=== PATIENT | female | born 1980 | race Caucasian/White ===

== ENCOUNTER 2019-05-31 15:05 | Observation (INO) | payer MEDICAID, OTHER ==
[~2019-05-31] VITALS: Ht 170.2 cm; Wt 76.8 kg
[2019-05-31 15:32] VITALS: BP 118/67
[2019-05-31] MEDS ORDERED: FOLI1 PO (15:37)
[2019-05-31] MEDS ORDERED: PREN-134 PO (15:37)
[2019-05-31] MEDS ORDERED: LEVO75 PO (15:37)
== END 2019-05-31 16:05 | disposition home or self-care (01) ==
LOC: 4S 15:05
PROVIDERS: ADMIT Obstetrics & Gynecology; ATTEND Obstetrics & Gynecology
DX: O09.93 Supervision of high risk pregnancy, unspecified, third trimester (principal); O99.283 Endocrine, nutritional and metabolic diseases complicating pregnancy, third trimester; E03.9 Hypothyroidism, unspecified; Z3A.34 34 weeks gestation of pregnancy
CPT/HCPCS: 81002; G0378

== ENCOUNTER 2019-06-04 13:55 | Observation (INO) | payer OTHER ==
[~2019-06-04 13:55] MED LIST: FOLI1 PO; LEVO75 PO; PREN-134 PO
[2019-06-04 14:26] VITALS: BP 105/58
[2019-06-04 15:01] LABS: GLUCOMETER DEV NAME(LOC) 4S.; GLUCOSE,POINT OF CARE 111 MG/DL (70-110)
== END 2019-06-04 15:00 | disposition home or self-care (01) ==
LOC: 4S 13:55
PROVIDERS: ADMIT Obstetrics & Gynecology; ATTEND Obstetrics & Gynecology
DX: O24.419 Gestational diabetes mellitus in pregnancy, unspecified control (principal); O99.283 Endocrine, nutritional and metabolic diseases complicating pregnancy, third trimester; E03.9 Hypothyroidism, unspecified; O09.523 Supervision of elderly multigravida, third trimester; Z3A.35 35 weeks gestation of pregnancy
CPT/HCPCS: 81002; 82962; G0378

== ENCOUNTER 2019-06-07 17:45 | Observation (INO) | payer OTHER ==
[~2019-06-07] VITALS: Ht 170.2 cm; Wt 77.1 kg
[2019-06-07 18:54] VITALS: BP 100/60
== END 2019-06-07 18:50 | disposition home or self-care (01) ==
LOC: 4S 17:45
PROVIDERS: ADMIT Obstetrics & Gynecology; ATTEND Obstetrics & Gynecology
DX: O09.513 Supervision of elderly primigravida, third trimester (principal); O24.419 Gestational diabetes mellitus in pregnancy, unspecified control; Z90.721 Acquired absence of ovaries, unilateral; Z3A.35 35 weeks gestation of pregnancy
CPT/HCPCS: 81002; G0378

== ENCOUNTER 2019-06-14 08:54 | Observation (INO) | payer OTHER ==
[~2019-06-14] VITALS: Ht 170.2 cm; Wt 77.1 kg
[2019-06-14] MEDS ORDERED: CALCIUM PO (10:24)
[2019-06-14] MEDS ORDERED: FOLIC AC PO (10:25)
[2019-06-14] MEDS ORDERED: PREN-217 PO (10:25)
[2019-06-14 10:26] VITALS: BP 108/59
== END 2019-06-14 10:15 | disposition home or self-care (01) ==
LOC: 4S 08:54
PROVIDERS: ADMIT Obstetrics & Gynecology; ATTEND Obstetrics & Gynecology
DX: O36.8330 Maternal care for abnormalities of the fetal heart rate or rhythm, third trimester, not applicable or unspecified (principal); O26.893 Other specified pregnancy related conditions, third trimester; E03.9 Hypothyroidism, unspecified; Z3A.36 36 weeks gestation of pregnancy
CPT/HCPCS: 81002; G0378

== ENCOUNTER 2019-06-21 16:06 | Observation (INO) | payer OTHER ==
[~2019-06-21] VITALS: Ht 170.2 cm; Wt 80.7 kg
[~2019-06-21 16:06] MED LIST changes: +CALCIUM PO; +FOLIC AC PO; +PREN-217 PO
[2019-06-21] MEDS ORDERED: CALCIUM PO (16:59)
[2019-06-21] MEDS ORDERED: PREN-217 PO (16:59)
[2019-06-21] MEDS ORDERED: FOLI0.4T14 PO (17:02)
[2019-06-21] MEDS ORDERED: IRON PO (17:02)
[2019-06-21 17:03] VITALS: BP 109/62
== END 2019-06-21 17:35 | disposition home or self-care (01) ==
LOC: 4S 16:06
PROVIDERS: ADMIT Obstetrics & Gynecology; ATTEND Obstetrics & Gynecology
DX: O26.893 Other specified pregnancy related conditions, third trimester (principal); R10.30 Lower abdominal pain, unspecified; O24.419 Gestational diabetes mellitus in pregnancy, unspecified control; O99.283 Endocrine, nutritional and metabolic diseases complicating pregnancy, third trimester; O12.03 Gestational edema, third trimester; Z3A.37 37 weeks gestation of pregnancy

== ENCOUNTER 2019-06-25 09:00 | Observation (INO) | payer OTHER ==
[~2019-06-25 09:00] MED LIST changes: +FOLI0.4T14 PO; +IRON PO
[2019-06-25] MEDS ORDERED: CALCIU PO (09:56)
[2019-06-25] MEDS ORDERED: LEVO75 PO (09:56)
[2019-06-25] MEDS ORDERED: FERR-89 PO (09:56)
[2019-06-25] MEDS ORDERED: FOLI0.4T14 PO (09:56)
[2019-06-25] MEDS ORDERED: PREN-217 PO (09:56)
[2019-06-25 09:58] VITALS: BP 108/66
== END 2019-06-25 11:00 | disposition home or self-care (01) ==
LOC: 4S 09:00
PROVIDERS: ADMIT Obstetrics & Gynecology; ATTEND Obstetrics & Gynecology
DX: O36.8130 Decreased fetal movements, third trimester, not applicable or unspecified (principal); O13.3 Gestational [pregnancy-induced] hypertension without significant proteinuria, third trimester; O99.283 Endocrine, nutritional and metabolic diseases complicating pregnancy, third trimester; E05.90 Thyrotoxicosis, unspecified without thyrotoxic crisis or storm; Z3A.38 38 weeks gestation of pregnancy
CPT/HCPCS: 81002; G0378

== ENCOUNTER 2019-07-02 09:05 | Observation (INO) | payer OTHER ==
[~2019-07-02] VITALS: Ht 170.2 cm; Wt 78.6 kg
[~2019-07-02 09:05] MED LIST changes: +CALCIU PO; +FERR-89 PO
[2019-07-02] MEDS ORDERED: calcium PO (09:42)
[2019-07-02] MEDS ORDERED: LEVO100 PO (09:42)
[2019-07-02] MEDS ORDERED: FOLI0.4T14 PO (09:42)
[2019-07-02] MEDS ORDERED: FERR-89 PO (09:42)
[2019-07-02] MEDS ORDERED: PREN-217 PO (09:42)
[2019-07-02 09:44] VITALS: BP 117/57
== END 2019-07-02 09:40 | disposition home or self-care (01) ==
LOC: 4S 09:05
PROVIDERS: ADMIT Obstetrics & Gynecology; ATTEND Obstetrics & Gynecology
DX: O36.8330 Maternal care for abnormalities of the fetal heart rate or rhythm, third trimester, not applicable or unspecified (principal); O24.419 Gestational diabetes mellitus in pregnancy, unspecified control; O99.283 Endocrine, nutritional and metabolic diseases complicating pregnancy, third trimester; Z3A.39 39 weeks gestation of pregnancy; Z98.890 Other specified postprocedural states

== ENCOUNTER 2019-07-05 18:20 | Observation (INO) | payer OTHER ==
[~2019-07-05] VITALS: Ht 160 cm; Wt 78.9 kg
[~2019-07-05 18:20] MED LIST changes: +LEVO100 PO; +calcium PO
[2019-07-05] MEDS ORDERED: FERR-89 PO (18:24)
[2019-07-05] MEDS ORDERED: RINGERS SOLUTION,LACTATED 1,000 ML IV PRN (18:24)
[2019-07-05] MEDS ORDERED: calcium PO (18:24)
[2019-07-05] MEDS ORDERED: Levothyroxine PO (18:24)
[2019-07-05] MEDS ORDERED: PREN-217 PO ×2 (18:24→18:59)
[2019-07-05] MEDS ORDERED: METOCLOPRAMIDE HCL 5 MG/ML 2 ML VIAL IVP PRN (18:30)
[2019-07-05] MEDS ORDERED: CITRIC ACID/SODIUM CITRATE 30 ML SOLUTION UDCUP PO PRN (18:30)
[2019-07-05 18:53] VITALS: BP 122/69
[2019-07-05] MEDS ORDERED: Calcium PO (18:59)
[2019-07-05] MEDS ORDERED: FOLI0.4T14 PO (18:59)
[2019-07-05] MEDS ORDERED: LEVO100 PO (18:59)
[2019-07-05] MEDS ORDERED: OXYGEN THERAPY IH SCH (20:00)
[2019-07-05] MEDS: RINGERS SOLUTION,LACTATED 1,000 ML IV SCH (20:13)
[2019-07-05] MEDS ORDERED: DINOPROSTONE 10 MG VAGINAL SUPPOSITORY VG ONE (20:15)
[2019-07-05] MEDS ORDERED: OXYTOCIN 30 UNITS/LACT RINGERS 500 ML IV ONE (21:12)
[2019-07-05] MEDS ORDERED: METHYLERGONOVINE MALEATE 0.2 MG/ML VIAL IM PRN (21:15)
[2019-07-05] MEDS ORDERED: AMPICILLIN SODIUM 2 GM/NS 100 ML IV ONE (21:30)
[2019-07-05 21:44] LABS: BASOPHILS % (AUTO) 0.4 % (0.0-2.0); EOSINOPHILS % (AUTO) 0.4 % (1.0-6.0); HEMATOCRIT 30.2 % (36-46); HEMOGLOBIN 10.2 g/dL (12.0-16.0); LYMPHOCYTES # (AUTO) 2.2 K/uL (1.0-4.8); LYMPHOCYTES % (AUTO) 25.2 % (22.0-44.0); MEAN CORPUSCULAR HEMOGLOBIN 31.1 pg (26.0-34.0); MEAN CORPUSCULAR HGB CONC 33.7 G/dL (31.0-37.0); MEAN CORPUSCULAR VOLUME 92 fL (80-100); MONOCYTES # (AUTO) 0.7 K/uL (0.1-1.0); MONOCYTES % (AUTO) 7.4 % (2.0-9.0); NEUTROPHILS # (AUTO) 5.9 K/uL (1.8-7.7); NEUTROPHILS % (AUTO) 66.6 % (40.0-70.0); PLATELET COUNT (AUTO)-OB 159 K/uL (150-450); RED BLOOD CELL COUNT(AUTO) 3.27 MIL/uL (4.00-5.20); RED CELL DISTRIBUTION WIDTH 14.5 % (11.5-14.5)
[2019-07-06] MEDS: AMPICILLIN SODIUM 1 GM/NS 50 ML IV SCH ×4 (01:27→14:23)
[2019-07-06] MEDS ORDERED: LEVOTHYROXINE SODIUM 75 MCG TABLET PO ONE (06:00)
[2019-07-06 07:17] LABS: GLUCOMETER DEV NAME(LOC) 4S.; GLUCOSE,POINT OF CARE 92 MG/DL (70-110)
[2019-07-06] MEDS ORDERED: -PHARMACY NOTE- MISC ONE (08:15)
[2019-07-06] MEDS ORDERED: MISOPROSTOL 25 MCG TABLET VG SCH (08:30)
[2019-07-06] MEDS: RINGERS SOLUTION,LACTATED 1,000 ML IV SCH ×2 (08:59→17:40)
[2019-07-06] MEDS ORDERED: MISOPROSTOL 50 MCG TABLET VG SCH (12:30)
[2019-07-06] MEDS: MISOPROSTOL 50 MCG TABLET PO SCH ×2 (13:31→17:39)
== END 2019-07-06 19:00 | disposition home or self-care (01) ==
LOC: 4S 18:20 → INTOOBSV 18:20 → OBSVTOIN 18:20
PROVIDERS: ADMIT Obstetrics & Gynecology; ATTEND Obstetrics & Gynecology
DX: O62.9 Abnormality of forces of labor, unspecified (principal); O09.523 Supervision of elderly multigravida, third trimester; O24.419 Gestational diabetes mellitus in pregnancy, unspecified control; Z79.899 Other long term (current) drug therapy; O99.283 Endocrine, nutritional and metabolic diseases complicating pregnancy, third trimester; E03.9 Hypothyroidism, unspecified; O48.0 Post-term pregnancy; Z3A.40 40 weeks gestation of pregnancy
CPT/HCPCS: 36415; 82962; 85025; 86850; 86900; 86901; 96365; 96366; G0378 ×2; J0290 ×2; J7120 ×2

== ENCOUNTER 2019-07-11 16:45 | Inpatient (IN) | payer OTHER ==
[~2019-07-11] VITALS: Ht 170.2 cm; Wt 80.3 kg
[~2019-07-11 16:45] MED LIST changes: +Calcium PO; +Levothyroxine PO
[2019-07-11] MEDS ORDERED: RINGERS SOLUTION,LACTATED 1,000 ML IV PRN (16:53)
[2019-07-11] MEDS ORDERED: METOCLOPRAMIDE HCL 5 MG/ML 2 ML VIAL IVP PRN (17:00)
[2019-07-11] MEDS ORDERED: MISOPROSTOL 25 MCG TABLET VG ONE (17:00)
[2019-07-11] MEDS ORDERED: CITRIC ACID/SODIUM CITRATE 30 ML SOLUTION UDCUP PO PRN (17:00)
[2019-07-11 17:16] VITALS: BP 117/68
[2019-07-11 17:22] LABS: BASOPHILS % (AUTO) 0.6 % (0.0-2.0); EOSINOPHILS % (AUTO) 0.4 % (1.0-6.0); HEMATOCRIT 32.3 % (36-46); HEMOGLOBIN 10.7 g/dL (12.0-16.0); LYMPHOCYTES # (AUTO) 2.3 K/uL (1.0-4.8); LYMPHOCYTES % (AUTO) 26.6 % (22.0-44.0); MEAN CORPUSCULAR HEMOGLOBIN 30.6 pg (26.0-34.0); MEAN CORPUSCULAR HGB CONC 33.1 G/dL (31.0-37.0); MEAN CORPUSCULAR VOLUME 93 fL (80-100); MONOCYTES # (AUTO) 0.4 K/uL (0.1-1.0); MONOCYTES % (AUTO) 5.2 % (2.0-9.0); NEUTROPHILS # (AUTO) 5.9 K/uL (1.8-7.7); NEUTROPHILS % (AUTO) 67.2 % (40.0-70.0); PLATELET COUNT (AUTO) 163 K/uL (150-450); RED BLOOD CELL COUNT(AUTO) 3.49 MIL/uL (4.00-5.20)
[2019-07-11] MEDS ORDERED: PREN-217 PO (17:33)
[2019-07-11] MEDS ORDERED: FERR-89 PO (17:33)
[2019-07-11] MEDS ORDERED: LEVO100 PO (17:33)
[2019-07-11] MEDS ORDERED: Calcium PO (17:33)
[2019-07-11] MEDS: RINGERS SOLUTION,LACTATED 1,000 ML IV SCH ×2 (17:55→22:06)
[2019-07-11] MEDS ORDERED: OXYGEN THERAPY IH SCH (20:00)
[2019-07-11 20:16] LABS: GLUCOMETER DEV NAME(LOC) 4S.; GLUCOSE,POINT OF CARE 79 MG/DL (70-110)
[2019-07-11] MEDS ORDERED: AMPICILLIN SODIUM 2 GM/NS 100 ML IV ONE (23:00)
[2019-07-11] MEDS: MISOPROSTOL 50 MCG TABLET VG SCH (23:12)
[2019-07-12] MEDS: MISOPROSTOL 50 MCG TABLET VG SCH ×2 (03:18→08:33)
[2019-07-12] MEDS: RINGERS SOLUTION,LACTATED 1,000 ML IV SCH ×3 (06:50→23:09)
[2019-07-12 07:59] LABS: GLUCOMETER DEV NAME(LOC) 4S.; GLUCOSE,POINT OF CARE 74 MG/DL (70-110)
[2019-07-12] MEDS ORDERED: LEVOTHYROXINE SODIUM 100 MCG TABLET PO ONE (08:30)
[2019-07-12] MEDS ORDERED: DINOPROSTONE 10 MG VAGINAL SUPPOSITORY VG ONE (11:45)
[2019-07-12] MEDS: FentaNYL CITRATE-PF 100 MCG/2 ML VIAL IVP PRN ×6 (12:03→21:48)
[2019-07-12] MEDS ORDERED: INFLUENZA VIRUS VACCINE QVS 2019-20 (3YR+)/PF 60 MCG/0.5 ML SYRINGE IM ONE (14:30)
[2019-07-13] MEDS ORDERED: OXYTOCIN 30 UNITS/LACT RINGERS 500 ML IV PRN (01:45)
[2019-07-13] MEDS: FentaNYL CITRATE-PF 100 MCG/2 ML VIAL IVP PRN (02:26)
[2019-07-13] MEDS ORDERED: ROPIVACAINE HCL/PF 0.2% 100 ML ED ONE (03:51)
[2019-07-13] MEDS ORDERED: NALBUPHINE HCL 10 MG/ML VIAL IVP PRN (04:15)
[2019-07-13] MEDS ORDERED: DiphenhydrAMINE HCL 50 MG/ML VIAL IVP PRN (04:15)
[2019-07-13] MEDS ORDERED: ONDANSETRON HCL 4 MG/2 ML VIAL IVP PRN (04:15)
[2019-07-13] MEDS ORDERED: AMPICILLIN SODIUM 2 GM/NS 100 ML IV ONE ×2 (05:01→05:15)
[2019-07-13] MEDS: RINGERS SOLUTION,LACTATED 1,000 ML IV SCH ×3 (05:11→19:14)
[2019-07-13] MEDS ORDERED: LIDOCAINE 2%/EPI 1:200,000/PF 20 ML VIAL ONE (07:31)
[2019-07-13] MEDS: LEVOTHYROXINE SODIUM 100 MCG TABLET PO SCH (07:47)
[2019-07-13 08:05] LABS: GLUCOMETER DEV NAME(LOC) 4S.; GLUCOSE,POINT OF CARE 62 MG/DL (70-110)
[2019-07-13] MEDS: AMPICILLIN SODIUM 1 GM/NS 50 ML IV SCH ×2 (09:15→13:28)
[2019-07-13] MEDS: ROPIVACAINE HCL/PF 0.2% 100 ML ED PRN ×2 (10:07→15:17)
[2019-07-13 11:48] LABS: GLUCOMETER DEV NAME(LOC) 4S.; GLUCOSE,POINT OF CARE 73 MG/DL (70-110)
[2019-07-13] MEDS ORDERED: OXYTOCIN 30 UNITS/LACT RINGERS 500 ML IV ONE (13:05)
[2019-07-13] MEDS ORDERED: ACETAMINOPHEN 1000 MG/ISO-OSM 100 ML IV ONE ×2 (13:45→14:30)
[2019-07-13] MEDS ORDERED: GENTAMICIN 120 MG/NACL ISO-OSM 100 ML IV ONE (13:45)
[2019-07-13] MEDS ORDERED: AMPICILLIN SODIUM 1 GM/NS 50 ML IV ONE (13:45)
[2019-07-13] MEDS ORDERED: AMPICILLIN SODIUM 2 GM/NS 100 ML IV SCH (19:30)
[2019-07-13] MEDS ORDERED: AMPICILLIN SODIUM 1 GM/NS 50 ML IV SCH (19:30)
[2019-07-13] MEDS ORDERED: MISOPROSTOL 100 MCG TABLET ONE (21:07)
[2019-07-13] MEDS ORDERED: MISOPROSTOL 100 MCG TABLET PO ONE (21:15)
[2019-07-13] MEDS ORDERED: RINGERS SOLUTION,LACTATED 1,000 ML IV ONE (21:36)
[2019-07-13] MEDS ORDERED: GLYCERIN/WITCH HAZEL LEAF 40 PADS JAR TP PRN (21:45)
[2019-07-13] MEDS ORDERED: OxyCODONE HCL/ACETAMINOPHEN 5-325 MG TABLET PO PRN ×2 (21:45)
[2019-07-13] MEDS ORDERED: LANOLIN 7 GM OINTMENT TP PRN (21:45)
[2019-07-13] MEDS ORDERED: MEASLES/MUMPS/RUBELLA VACCINE, LIVE 0.5 ML/VIAL SQ ONE (21:45)
[2019-07-13] MEDS ORDERED: GENTAMICIN 80 MG/NACL ISO-OSM 50 ML IV SCH (21:45)
[2019-07-13] MEDS ORDERED: BENZOCAINE 20%/MENTHOL 56 GM SPRAY CANISTER TP PRN (21:45)
[2019-07-13] MEDS ORDERED: ACETAMINOPHEN 325 MG TABLET PO ONE (21:45)
[2019-07-14] MEDS: LEVOTHYROXINE SODIUM 100 MCG TABLET PO SCH (06:17)
[2019-07-14] MEDS: MAGNESIUM HYDROXIDE SUSPENSION 30 ML UDCUP PO SCH ×2 (10:16→22:24)
[2019-07-14] MEDS: IBUPROFEN 600 MG TABLET PO PRN ×2 (10:17→16:44)
[2019-07-15] MEDS: IBUPROFEN 600 MG TABLET PO PRN (06:22)
[2019-07-15] MEDS: LEVOTHYROXINE SODIUM 100 MCG TABLET PO SCH (06:33)
[2019-07-15] MEDS: MAGNESIUM HYDROXIDE SUSPENSION 30 ML UDCUP PO SCH (08:51)
[2019-07-15] MEDS ORDERED: IBUP-2071 PO (09:16)
[2019-07-15] MEDS ORDERED: FERR-89 PO (09:16)
[2019-07-15] MEDS ORDERED: DOCU-275 PO (09:16)
== END 2019-07-15 15:00 | disposition home or self-care (01) | DRG 560 ==
LOC: OBSVTOIN 16:45 → 4S 16:45
PROVIDERS: ADMIT Obstetrics & Gynecology; ATTEND Obstetrics & Gynecology
PROC: 10E0XZZ Delivery of Products of Conception, External Approach (ICD-10-PCS; principal; 2019-07-13)
PROC: 0HQ9XZZ Repair Perineum Skin, External Approach (ICD-10-PCS; 2019-07-13)
PROC: 3E0R3BZ Introduction of Anesthetic Agent into Spinal Canal, Percutaneous Approach (ICD-10-PCS; 2019-07-13)
PROC: 00HU33Z Insertion of Infusion Device into Spinal Canal, Percutaneous Approach (ICD-10-PCS; 2019-07-13)
DX: O77.0 Labor and delivery complicated by meconium in amniotic fluid (principal); O70.0 First degree perineal laceration during delivery; Z3A.40 40 weeks gestation of pregnancy; Z37.0 Single live birth
CPT/HCPCS: 86850; 86900; 86901; 90707; J0131; J0290; J1580; J2590; J2795; J3010; J7120